=== PATIENT | female | born 1975 | race Caucasian/White ===

== ENCOUNTER 2017-05-25 12:18 | Emergency (ER) | payer OTHER ==
[~2017-05-25] VITALS: Ht 175.3 cm; Wt 155.0 kg
[2017-05-25 12:38] VITALS: BP 142/85
== END 2017-05-25 15:12 | disposition left against medical advice (07) ==
LOC: ED 14:00
DX: M54.9 Dorsalgia, unspecified (principal); Z53.21 Procedure and treatment not carried out due to patient leaving prior to being seen by health care provider
CPT/HCPCS: 93005; 99281

== ENCOUNTER 2018-08-18 18:11 | Emergency (ER) | payer OTHER ==
[~2018-08-18] VITALS: Ht 172.7 cm; Wt 151.2 kg
[2018-08-18 18:16] VITALS: BP 159/91
[2018-08-18] MEDS ORDERED: LIDOCAINE-MPF 1%, 5ML ONE (18:28)
[2018-08-18] MEDS ORDERED: DIPH,PERTUSS(ACELL),TET VAC/PF 0.5 ML IM-VACC ONE ×2 (18:28→19:00)
[2018-08-18] MEDS ORDERED: LIDOCAINE 1%, 10ML INFIL ONE (19:00)
== END 2018-08-18 19:49 | disposition home or self-care (01) ==
LOC: ED 19:43
DX: S91.112A Laceration without foreign body of left great toe without damage to nail, initial encounter (principal); S91.115A Laceration without foreign body of left lesser toe(s) without damage to nail, initial encounter; Z88.1 Allergy status to other antibiotic agents; X58.XXXA Exposure to other specified factors, initial encounter; Y93.89 Activity, other specified; Y92.098 Other place in other non-institutional residence as the place of occurrence of the external cause; Y99.8 Other external cause status
CPT/HCPCS: 12041; 90471; 90715; 99285; J3490; 99283